=== PATIENT | female | born 1930 | race Caucasian/White ===

== ENCOUNTER → 2016-06-19 | Day surgery (SDC) | payer MEDICARE ==
[~2016-06-19] MED LIST: ACETAMINOPHEN 1000 MG/100 ML VIAL IV ONE; ALPR0.5T99 PO; BALANCED SALT SOLN OPHT IRRIG 15 ML BTL ONE; BUPIVACAINE/EPINEPHRINE 0.25% PF 30 ML VIAL ONE; CELE20TA PO; COUM1TAB PO; DIGO.125 PO; LACTATED RINGER'S 1000 ML INJ 1,000 ML ONE; LEVO50TA51 PO; LIDOCAINE 1%/EPINEPHrine 1:100,000 SOLN 20 ML VIAL ONE; NEOMYCIN/POLYMYXIN/BACITRACIN OINT 15 GM TUBE ONE; PROPOFOL 200 MG/20 ML AMP IV ONE; TOPR50TA PO; VANCOMYCIN 500 MG VIAL ONE; ZOCO80TA PO; ceFAZolin INJ 1,000 MG VIAL ONE
--- NOTE | 2016-06-19 12:16 | TN ---
cc: BOOKER PALOMARES M.D. DATE OF SURGERY: 06/19/2016 PREOPERATIVE DIAGNOSIS Basal cell carcinoma located on occipital scalp. POSTOPERATIVE DIAGNOSIS Basal cell carcinoma located on occipital scalp. PROCEDURE Wide local excision resultant in primary defect of 2 x 3 cm. This required tissue rearrangement, reconstruction, second defect of 6 x 3. . SURGEON Booker Palomares MD ANESTHESIA LMA general. I also utilized total of 20 ccs of 1% lidocaine with epinephrine. ESTIMATED BLOOD LOSS Minimal. COMPLICATIONS None. PROCEDURE Proper consent was obtained. The patient was taken to the operating room where after achieving a level of LMA anesthesia, the area was properly prepped and utilizing Microcyn a sterile draping applied. Utilizing 15 blade excision of this cancer was properly carried out with at least half centimeter margin. This was sent to pathology for permanent section analysis. The defect is 2 x 3 cm. After extensive undermining layered closure was done utilizing 2-0 Monocryl suture for a tissue rearrangement, reconstruction and a secondary defect of 6 x 3. 3-0 Monocryl suture of 2-0 Prolene surgical isidra were utilized. Absorbent dressing was applied. Good viability of tissue was noted at the end of the case. The patient tolerated the procedure fairly well. MD CLARKE rBasher/NOÉ /11:31 AM /12:08 PM SUSAN
== END | disposition home or self-care (01) ==
LOC: ESDC 08:49
PROVIDERS: ATTEND Plastic Surgery
DX: C44.41 Basal cell carcinoma of skin of scalp and neck (principal)
CPT/HCPCS: 00300; 14021; 88305; J0131; J0690; J3010; J7120; 88307; J3370